=== PATIENT | female | born 1960 | race Caucasian/White ===

== ENCOUNTER 2019-03-11 18:40 | Emergency (ER) | payer BC ==
[2019-03-11 19:30] LABS: ABS Basophils 0.1 10^3/ul (0-0.2); ABS Eosinophils 0.2 10^3/ul (0-0.6); ABS Lymphocytes 1.9 10^3/ul (1.0-4.8); ABS Monocytes 0.5 10^3/ul (0-0.8); ABS Neutrophils 4.2 10^3/ul (1.5-7.7); Eosinophil % 3.1 %; Hematocrit 42 % (35-47); Hemoglobin 14.2 g/dL (12.0-16.0); Lymphocyte % 27.2 %; Mean Corpuscular HGB Conc 34 g/dL (31-36); Mean Corpuscular Hemoglobin 29 pg (27-31); Mean Corpuscular Volume 85 fL (80-97); Mean Platelet Volume 8.4 fL (7.4-10.4); Platelet Count 245 10^3/uL (150-450); Red Blood Count 4.95 10^6 /uL (3.70-4.87); Red Cell Distribution Width 13 % (10-15); White Blood Count 6.8 10^3/uL (3.5-10.8)
[2019-03-11 19:41] LABS: INR 0.95 (0.82-1.09)
[2019-03-11 20:00] LABS: Troponin I 0.01 ng/mL (<0.04)
[2019-03-11 20:03] LABS: Albumin 4.4 g/dL (3.2-5.2); Albumin/Globulin Ratio 1.9 (1-3); BUN/Creatinine Ratio 18.7 (8-20); Calcium 9.3 mg/dL (8.6-10.3); EGFR African American 76.8 (>60); EGFR Non-African American 63.5 (>60); Globulin 2.3 g/dL (2-4); Potassium 3.7 mmol/L (3.5-5.0); Total Bilirubin 0.7 mg/dL (0.2-1.0); Total Protein 6.7 g/dL (6.4-8.9)
--- NOTE | 2019-03-11 23:38 | ED ---
HPI Chest Pain - HPI Summary HPI Summary: Pt is a 59 y/o F presenting to the ED for a chief complaint of chest discomfort for the last 3 days. Pt has chest discomfort that worsens when walking/exertion and improves when laying down or at rest. Patient characterizes the chest pain for the past two days as a discomfort and states that the pain became more of a sharp/stabbing and "pinching" sensation. Pain is noted to radiate upwards from left anterior chest. At work today, 03/11/19, patient had left-sided chest pain. She states that the chest pain worsened after she returned home and took a shower. Pt describes that the chest discomfort is associated with palpitations, coughing, SOB, nausea, diaphoresis, and throat discomfort. Pt had a cardiac stress test performed 7-8 years ago. Pt denies fever or pedal edema. She has not taken any medications for her symptoms. Pt has a FMHx of angina, [place], and her father had quadruple bypass. Pt has a PMHx of mitral valve prolapse diagnosed in 2003, HTN which pt no longer takes medication for, and hypercholesterinemia for which she takes medication. Pt denies a cardiac catheterization in the past or pain at the present time. Pt denies smoking, alcohol or drug use. Pt moved to [place] from [facility] 3 months ago. - History of Current Complaint Chief Complaint: EDChestPainROMI Time Seen by Provider: 03/11/19 22:15 Hx Obtained From: Patient Onset/Duration: Started Days Ago, Atraumatic, Still Present Timing: Intermittent, Lasting Days Initial Severity: Moderate Current Severity: Moderate Pain Intensity: 6 Pain Scale Used: 0-10 Numeric Chest Pain Location: Left Anterior Chest Pain Radiates: Yes Chest Pain Radiates To:: Other - radiated upwards from left anterior chest Character: Pressure/Squeezing, Sharp/Stabbing, Other: - Pinching Aggravating Factor(s): Exertion, Movement - Walking Alleviating Factor(s): Rest Associated Signs and Symptoms: Positive: Chest Pain, Shortness of Breath, Diaphoresis, Nausea, Palpitations, Cough, Other: - Negative pedal edema, positive throat discomfort. Negative: Fever, Edema - Allergy/Home Medications Allergies/Adverse Reactions: Allergies Allergy/AdvReac Type Severity Reaction Status Date / Time tomato Allergy Swelling Verified 03/11/19 18:50 Of Face,Lips,& Throat calamari Allergy Swelling Uncoded 03/11/19 18:50 Of Face,Lips,& Throat Home Medications: Home Medications Ibuprofen TAB* [Motrin TAB* 600 MG] 600 mg PO Q8HR PRN 03/11/19 [History Confirmed 03/11/19] Simvastatin 20 mg PO DAILY 03/11/19 [History Confirmed 03/11/19] Thyroid TAB* [Thyroid TAB 60 MG*] 60 mg PO DAILY 03/11/19 [History Confirmed ] PMH/Surg Hx/FS Hx/Imm Hx Previously Healthy: Yes Endocrine/Hematology History: Denies: Hx Diabetes Cardiovascular History: Reports: Hx Hypercholesterolemia, Hx Hypertension, Other Cardiovascular Problems/Disorders - Mitral valve prolapse - Surgical History Surgical History: None Surgery Procedure, Year, and Place: None Infectious Disease History: No Infectious Disease History: Denies: Traveled Outside the [place] in Last 30 Days - Family History Known Family History: Negative: Diabetes - Social History Alcohol Use: None Hx Substance Use: No Substance Use Type: Reports: None Substance Use Comment - Amount & Last Used: None Hx Tobacco Use: No Smoking Status (MU): Former Smoker Review of Systems - ROS Summary Review of Systems Summary: Ibuprofen TAB* [Motrin TAB* 600 MG] 600 mg PO Q8HR PRN 03/11/19 [History Confirmed 03/11/19] Simvastatin 20 mg PO DAILY 03/11/19 [History Confirmed 03/11/19] Thyroid TAB* [Thyroid TAB 60 MG*] 60 mg PO DAILY 03/11/19 [History Confirmed ] Positive: Skin Diaphoresis. Negative: Fever Positive: Other - Throat discomfort Positive: Palpitations, Chest Pain - Chest discomfort Positive: Shortness Of Breath, Cough Positive: Nausea Negative: Edema - pedal All Other Systems Reviewed And Are Negative: Yes Physical Exam - Summary Physical Exam Summary: General: Well-developed, Obese. Female. Mildly anxious. HEENT: Normocephalic, Atraumatic. Eyes: Conjuctiva normal, PERRL. Ears: TMs within normal limits. Nares: (-) discharge, (-) erythema. Oropharynx: Clear, mucous membranes moist, (-) exudates. Neck: Soft, FROM, (-) lymphadenopathy, (-) thyromegaly, (-) JVD. Cardiovascular: Normal sinus rhythm, (-) murmur. Lungs: Clear to auscultation bilaterally (-) wheezes, (-) rales, (-) rhonchi. Abdomen: Soft, non-tender, non-distended, (-) organomegaly, normal bowel sounds. Back: (-) CVA tenderness Extremities: No edema. Skin: Warm, dry, (-) rash. Neuro: Alert and oriented x3, no focal deficits. Psychiatric: Mood normal, affect normal. Triage Information Reviewed: Yes Vital Signs On Initial Exam: Initial Vitals Temp Pulse Resp BP Pulse Ox 98.4 F 85 16 154/97 100 03/11/19 18:44 03/11/19 18:44 03/11/19 18:44 03/11/19 18:44 03/11/19 18:44 Vital Signs Reviewed: Yes Diagnostics - Vital Signs Vital Signs Temp Pulse Resp BP Pulse Ox 03/11/19 22:08 69 156/85 98 03/11/19 22:00 98.2 F 74 99 03/11/19 21:38 77 14 154/92 98 03/11/19 21:37 73 98 03/11/19 21:00 98.5 F 77 18 169/94 98 03/11/19 18:44 98.4 F 85 16 154/97 100 - Laboratory Lab Results: Lab Results 03/11/19 03/11/19 03/11/19 Range/Units 19:12 19:12 19:12 WBC 6.8 (3.5-10.8) 10^3/uL RBC 4.95 H (3.70-4.87) 10^6 /uL Hgb 14.2 (12.0-16.0) g/dL Hct 42 (35-47) % MCV 85 (80-97) fL MCH 29 (27-31) pg MCHC 34 (31-36) g/dL RDW 13 (10-15) % Plt Count 245 (150-450) 10^3/uL MPV 8.4 (7.4-10.4) fL Neut % (Auto) 61.8 % Lymph % (Auto) 27.2 % Foster % (Auto) 7.1 % Eos % (Auto) 3.1 % Baso % (Auto) 0.8 % Absolute Neuts (auto) 4.2 (1.5-7.7) 10^3/ul Absolute Lymphs (auto) 1.9 (1.0-4.8) 10^3/ul Absolute Monos (auto) 0.5 (0-0.8) 10^3/ul Absolute Eos (auto) 0.2 (0-0.6) 10^3/ul Absolute Basos (auto) 0.1 (0-0.2) 10^3/ul Absolute Nucleated RBC 0.0 10^3/ul Nucleated RBC % 0.0 INR (Anticoag Therapy) 0.95 (0.82-1.09) Sodium 140 (135-145) mmol/L Potassium 3.7 (3.5-5.0) mmol/L Chloride 104 (101-111) mmol/L Carbon Dioxide 29 (22-32) mmol/L Anion Gap 7 (2-11) mmol/L BUN 17 (6-24) mg/dL Creatinine 0.91 (0.51-0.95) mg/dL Est GFR ( Amer) 76.8 (>60) Est GFR (Non-Af Amer) 63.5 (>60) BUN/Creatinine Ratio 18.7 (8-20) Glucose 170 H (70-100) mg/dL Calcium 9.3 (8.6-10.3) mg/dL Total Bilirubin 0.70 (0.2-1.0) mg/dL AST 19 (13-39) U/L ALT 20 (7-52) U/L Alkaline Phosphatase 87 (34-104) U/L Troponin I 0.01 (<0.04) ng/mL Total Protein 6.7 (6.4-8.9) g/dL Albumin 4.4 (3.2-5.2) g/dL Globulin 2.3 (2-4) g/dL Albumin/Globulin Ratio 1.9 (1-3) 03/11/19 Range/Units 21:49 WBC (3.5-10.8) 10^3/uL RBC (3.70-4.87) 10^6 /uL Hgb (12.0-16.0) g/dL Hct (35-47) % MCV (80-97) fL MCH (27-31) pg MCHC (31-36) g/dL RDW (10-15) % Plt Count (150-450) 10^3/uL MPV (7.4-10.4) fL Neut % (Auto) % Lymph % (Auto) % Foster % (Auto) % Eos % (Auto) % Baso % (Auto) % Absolute Neuts (auto) (1.5-7.7) 10^3/ul Absolute Lymphs (auto) (1.0-4.8) 10^3/ul Absolute Monos (auto) (0-0.8) 10^3/ul Absolute Eos (auto) (0-0.6) 10^3/ul Absolute Basos (auto) (0-0.2) 10^3/ul Absolute Nucleated RBC 10^3/ul Nucleated RBC % INR (Anticoag Therapy) (0.82-1.09) Sodium (135-145) mmol/L Potassium (3.5-5.0) mmol/L Chloride (101-111) mmol/L Carbon Dioxide (22-32) mmol/L Anion Gap (2-11) mmol/L BUN (6-24) mg/dL Creatinine (0.51-0.95) mg/dL Est GFR ( Amer) (>60) Est GFR (Non-Af Amer) (>60) BUN/Creatinine Ratio (8-20) Glucose (70-100) mg/dL Calcium (8.6-10.3) mg/dL Total Bilirubin (0.2-1.0) mg/dL AST (13-39) U/L ALT (7-52) U/L Alkaline Phosphatase (34-104) U/L Troponin I 0.00 (<0.04) ng/mL Total Protein (6.4-8.9) g/dL Albumin (3.2-5.2) g/dL Globulin (2-4) g/dL Albumin/Globulin Ratio (1-3) Result Diagrams: 03/11/19 19:12 03/11/19 19:12 Lab Statement: Any lab studies that have been ordered have been reviewed, and results considered in the medical decision making process. - Radiology Chest X-ray Radiology Interpretation Completed By: ED Physician Summary of Radiographic Findings: Chest x-ray impression: normal. Reviewed by ED physician, pending official radiology report. - EKG 1841 Cardiac Rate: NL - rate of 89 BPM EKG Rhythm: Sinus Rhythm Summary of EKG Findings: EKG showed NSR with rate of 89 BPM, no STEMI. ED physician has reviewed and interpreted this EKG. Chest Pain Course/Dx - Course Course Of Treatment: Pt is a 59 y/o F presenting to the ED for a chief complaint of chest discomfort for the last 3 days. Pt has chest discomfort that worsens when walking/exertion and improves when laying down or at rest. Patient characterizes the chest pain for the past two days as a discomfort and states that the pain became more of a sharp/stabbing and "pinching" sensation. Pain is noted to radiate upwards from left anterior chest. At work today, 03/11/19, patient had left-sided chest pain. She states that the chest pain worsened after she returned home and took a shower. Pt describes that the chest discomfort is associated with palpitations, coughing, SOB, nausea, diaphoresis, and throat discomfort. Pt had a cardiac stress test performed 7-8 years ago. Pt denies fever or pedal edema. She has not taken any medications for her symptoms. Pt has a FMHx of angina, [place], and her father had quadruple bypass. Pt has a PMHx of mitral valve prolapse diagnosed in 2003, HTN which pt no longer takes medication for, and hypercholesterinemia for which she takes medication. Pt denies a cardiac catheterization in the past or pain at the present time. Pt denies smoking, alcohol or drug use. EKG showed NSR with rate of 89 BPM, no STEMI. Bloodwork abnormal findings: RBC 4.95, glucose 170. First and second trop were negative. Chest x-ray impression: normal. Patient will be discharged home with a diagnosis of chest pain. She will follow up with PCP to discuss possible cardiac stress test. - Diagnoses Provider Diagnoses: Chest pain Discharge ED - Sign-Out/Discharge Documenting (check all that apply): Patient Departure - Discharge Patient Received Moderate/Deep Sedation with Procedure: No - Discharge Plan Condition: Stable Disposition: HOME Patient Education Materials: Chest Pain (ED) Referrals: Jean GUERRERO,CESAR Newman [Primary Care Provider] - Additional Instructions: Please follow up with primary care provider within 3 days. Talk with your primary care provider to determine if stress test is needed. Return to the ED for any new or worsening symptoms. - Billing Disposition and Condition Condition: STABLE Disposition: Home - Attestation Statements Document Initiated by [place]: Yes Documenting Scribe: Jarred Rosenbaum Provider For Whom Scribe is Documenting (Include Credential): Nery Sweeney MD. Scribe Attestation: I, Jarred Rosenbaum, scribed for Nery Sweeney MD. on 03/12/19 at 0223. Scribe Documentation Reviewed: Yes Provider Attestation: The documentation as recorded by the scribeJarred accurately reflects the service I personally performed and the decisions made by me, Nery Sweeney MD. Status of Scribe Document: Viewed
[2019-03-11 23:54] VITALS: BP 147/102
== END 2019-03-11 23:55 | disposition home or self-care (01) ==
LOC: ED 18:40
DX: R07.9 Chest pain, unspecified (principal); R06.02 Shortness of breath; R11.0 Nausea; R00.2 Palpitations; R05 Cough; E78.00 Pure hypercholesterolemia, unspecified; I10 Essential (primary) hypertension; Z79.899 Other long term (current) drug therapy; Z87.891 Personal history of nicotine dependence
CPT/HCPCS: 36415; 71046; 80053; 84484; 85025; 85610; 93005; 99283

== ENCOUNTER 2019-04-29 10:59 | Emergency (ER) | payer BC ==
--- OUTSIDE RECORDS SUMMARY | 2019-04-29 11:06 | XMS REPORT | Continuity of Care Document ---
:1960 External Reference #:[id number] Author Name Dinesh Thakur DO [facility] (transmitted by agent of provider Gabby Kyle) Address 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 No Information Available Social History Type Date Description Comments Sex Unknown Tobacco Use Start: Unknown End: Former Cigarette Smoker Unknown ETOH Use Occasionally consumes wine Tobacco Use Start: Unknown End: Patient is a former Unknown smoker Recreational Drug Use Denies Drug Use Tobacco Use Start: Unknown End: Patient is a former stopped in her 30's Unknown smoker Smoking Status Reviewed: 03/17/19 Patient is a former stopped in her 30's smoker Exercise Type/Frequency Exercises regularly Allergies, Adverse Reactions, Alerts Description No Known Drug Allergies Medications Active Medications SIG Qnty Indications Ordering Provider Date Zocor 1 every at 90tabs Velasquez Day MD 03/17/2019 20mg Tablets bedtime [place] Thyroid 1 by mouth every 30tabs Velasquez Day MD 03/17/2019 60mg day Tablets Melatonin Gummies 2 tab every 60units G47.00 Velasquez Day MD 03/17/2019 2.5mg night at bedtime Chewtabs Cetirizine HCL take 1 pill 30units J30.9 Velasquez Day MD 03/17/2019 5mg daily Chewtabs Immunizations Description No Information Available Vital Signs Date Vital Result Comment 03/17/2019 11:44am Height 62 inches 5'2" Weight 181.00 lb no shoes Heart Rate 80 /min BP Systolic 132 mmHg rue reg cuff BP Diastolic 80 mmHg rue reg cuff BP Systolic Sitting 128 mmHg lue reg cuff BP Diastolic Sitting 80 mmHg lue reg cuff BP Systolic Standing 140 mmHg lue reg cuff BP Diastolic Standing 80 mmHg lue reg cuff Respiratory Rate 14 /min BMI (Body Mass Index) 33.1 kg/m2 Ejection Fraction none 03/17/2019 8:59am Height 62 inches 5'2" Weight 188.00 lb Heart Rate 71 /min BP Systolic 110 mmHg BP Diastolic 70 mmHg Body Temperature 97.2 F O2 % BldC Oximetry 97 % BMI (Body Mass Index) 34.4 kg/m2 Results Description No Information Available Procedures Date Code Description Status 03/17/2019 92772 EKG Tracing & Interpretation Completed Medical Devices Description No Information Available Encounters Description No Information Available Assessments Date Code Description Provider 03/17/2019 R73.01 Impaired fasting glucose Dinesh Thakur, DO [facility] 03/17/2019 E06.3 Autoimmune thyroiditis Velasquez Day MD 03/17/2019 E78.2 Mixed hyperlipidemia Dinesh Thakur DO [facility] 03/17/2019 R07.9 Chest pain, unspecified Velasquez Day MD 03/17/2019 E78.5 Hyperlipidemia, unspecified Dinesh Thakur DO [facility] 03/17/2019 R00.2 Palpitations Velasquez Day MD 03/17/2019 I34.0 Nonrheumatic mitral (valve) insufficiency Dinesh Thakur DO [facility] 03/17/2019 E78.5 Hyperlipidemia, unspecified Velasquez Day MD 03/17/2019 R07.9 Chest pain, unspecified Dinesh Thakur DO [facility] 03/17/2019 R73.03 Prediabetes Velasquez Day MD 03/17/2019 R06.02 Shortness of breath Dinesh Thakur DO [facility] 03/17/2019 G47.00 Insomnia, unspecified Velasquez Day MD 03/17/2019 R00.2 Palpitations Dinesh Thakur DO [facility] 03/17/2019 J30.9 Allergic rhinitis, unspecified Velasquez Day MD 03/17/2019 Z12.11 Encounter for screening for malignant Velasquez Day MD neoplasm of colon 03/17/2019 R06.02 Shortness of breath Velasquez Day MD Plan of Treatment Future Appointment(s):03/20/2019 9:00 am - Nurse Visit IC at [facility]03/19/2019 9:30 am - Nurse Visit IC at [facility] 9:15 am - Dinesh Thakur DO FACC at [facility]04/08/2019 8:45 am - Ica ECHO Schedule at [facility]04/21/2019 12:00 pm - Dustin Jiménez MD at [facility]03/17/2019 - Dinesh Thakur DO FACCR73.01 Impaired fasting glucoseFollow up:PRNE78.2 Mixed plrmprofizyfrvK80.5 Hyperlipidemia, bxabitnjetyA81.0 Nonrheumatic mitral (valve ) eninlksfelytuW51.9 Chest pain, unspecifiedNew Orders:Stress Test, Exercise Echocardiogram, Scheduled: 03/17/19R06.02 Shortness of wmzzaxM32.2 PalpitationsNew Orders:Holter Monitor, Ordered: 03/17/19 Functional Status Description No Information Available Mental Status Description No Information Available Referrals Refer to Dr Reason for Referral Status Appt Date Dinesh Thakur DO, FACC palpitations, episode of chest Sent 03/17/2019 discomfort, family history. [facility] [place] [id number] [phone]
--- OUTSIDE RECORDS SUMMARY | 2019-04-29 11:06 | XMS REPORT | Continuity of Care Document ---
:1960 External Reference #:[id number] Author Name Velasquez Day MD (transmitted by agent of provider Marie Walker) Address [address] [place] [address] Problems Description No Information Available Social History Type Date Description Comments Sex Unknown Tobacco Use Start: Unknown End: Patient is a former smoker Unknown Tobacco Use Start: Unknown End: Patient is a former smoker stopped in her 30 's Unknown Smoking Status Reviewed: 03/17/19 Patient is a former smoker stopped in her 30's Allergies, Adverse Reactions, Alerts Description No Known Drug Allergies Medications Active Medications SIG Qnty Indications Ordering Provider Date Zocor 1 every at 90tabs Velasquez Day MD 03/17/2019 20mg Tablets bedtime [place] Thyroid 1 by mouth every 30tabs Velasquez Day MD 03/17/2019 60mg day Tablets Melatonin Gummies 2 tab every 60units G47.00 Velasquez Day MD 03/17/2019 2.5mg night at bedtime Chewtabs Cetirizine HCL take 1 pill 30units J30.9 Velasquez Day MD 03/17/2019 5mg daily Chewtabs Immunizations Description No Information Available Vital Signs Date Vital Result Comment 03/17/2019 8:59am Height 62 inches 5'2" Weight 188.00 lb Heart Rate 71 /min BP Systolic 110 mmHg BP Diastolic 70 mmHg Body Temperature 97.2 F O2 % BldC Oximetry 97 % BMI (Body Mass Index) 34.4 kg/m2 Results Description No Information Available Procedures Description No Information Available Medical Devices Description No Information Available Encounters Description No Information Available Assessments Date Code Description Provider 03/17/2019 E06.3 Autoimmune thyroiditis Velasquez Day MD 03/17/2019 R07.9 Chest pain, unspecified Velasquez Day MD 03/17/2019 R00.2 Palpitations Velasquez Day MD 03/17/2019 E78.5 Hyperlipidemia, unspecified Velasquez Day MD 03/17/2019 R73.03 Prediabetes Velasquez Day MD 03/17/2019 G47.00 Insomnia, unspecified Velasquez Day MD 03/17/2019 J30.9 Allergic rhinitis, unspecified Velasquez Day MD 03/17/2019 Z12.11 Encounter for screening for malignant neoplasm of Velasquez Day MD colon 03/17/2019 R06.02 Shortness of breath Velasquez Day MD Plan of Treatment Future Appointment(s):04/21/2019 12:00 pm - Dustin Jiménez MD at [facility]03/17/2019 - Velasquez Day MDE06.3 Autoimmune gyppouomftxP75.9 Chest pain, unspecifiedReferral:Dinesh Thakur DO, FACC, Cardiovsclr KcgqavuD92.2 ZsopvtpigyarN23.5 Hyperlipidemia, jonruzhsphxS27.03 LknbhnmlucwI63.00 Insomnia, unspecifiedNew Medication:Melatonin Gummies 2.5 mg - 2 tab every night at lzpklmuN48.9 Allergic rhinitis, unspecifiedNew Medication :Cetirizine HCL 5 mg - take 1 pill tylsyO50.11 Encounter for screening for malignant neoplasm of colonComments:We will request records from your last colonoscopy as you will likely need another screening colonoscopy within the next 0-2 years.R06.02 Shortness of breath Functional Status Description No Information Available Mental Status Description No Information Available Referrals Refer to Dr Reason for Referral Status Appt Date Dinesh Thakur DO, FACC palpitations, episode of chest Created discomfort, family history. [address] [place] [address] [phone]
--- OUTSIDE RECORDS SUMMARY | 2019-04-29 11:06 | XMS REPORT | Continuity of Care Document ---
:1960 External Reference #:[id number] Author Name Dustin Jiménez MD (transmitted by agent of provider Fifi Flynn) Address [address] [place] [address] Care Team Providers Name Role Phone Velasquez Day MD - Hospitalist Care Team Information Risk Management Analyst [phone] Problems Description No Information Available Social History Type Date Description Comments Sex Unknown Tobacco Use Start: Unknown End: Former Cigarette Smoker Unknown ETOH Use Occasionally consumes 1-2 glasses of wine wine of week Tobacco Use Start: Unknown End: Patient is a former Unknown smoker Recreational Drug Use Denies Drug Use Tobacco Use Start: Unknown End: Patient is a former stopped in her 30's Unknown smoker Smoking Status Reviewed: 04/21/19 Patient is a former stopped in her 30's smoker Exercise Type/Frequency Exercises regularly walk daily Allergies, Adverse Reactions, Alerts Description No Known Drug Allergies Medications Active Medications SIG Qnty Indications Ordering Date Provider Levothyroxine Sodium 1 by mouth every 30tabs E06.3 Dustin Jiménez MD 2018 day on an empty 100mcg Tablets stomach Metformin HCL 1 by mouth twice 120tabs Velasquez Day MD 03/20/2019 500mg a day for 7 days Tablets then two tabs twice a day Zocor 1 every at 90tabs Velasquez Day MD 03/17/2019 20mg Tablets bedtime History Medications Levothyroxine Sodium 1 by mouth every E06.3 Dustin Jiménez 04/21/2019 - day 04/21/2019 100mcg Solution Rec Metformin HCL ER (Mod) 1 by mouth twice 60tabs Velasquez Day MD 03/19/2019 - a day for 1 week 03/20/2019 500mg Tablets ER 24HR then 2 by mouth twice a day [facility] Thyroid 1 by mouth every 30tabs E06.3 Velasquez Day MD 03/17/2019 - 60mg day 04/21/2019 Tablets Melatonin Gummies 2 tab every 60units G47.00 Velasquez Day MD 03/17/2019 - 2.5mg night at bedtime 04/20/2019 [facility] Cetirizine HCL take 1 pill 30units J30.9 Velasquez Day MD 03/17/2019 - 5mg daily 04/20/2019 [facility] Immunizations Description No Information Available Vital Signs Date Vital Result Comment 04/21/2019 12:36pm Height 62 inches 5'2" Weight 194.00 lb w/ shoes Heart Rate 90 /min BP Systolic Sitting 137 mmHg BP Diastolic Sitting 75 mmHg BMI (Body Mass Index) 35.5 kg/m2 03/17/2019 11:44am Height 62 inches 5'2" Weight [...] Mass Index) 33.1 kg/m2 Ejection Fraction none Results Test Acquired Date Facility Test Result H/L Range Note Laboratory test 03/19/2019 [facility] TSH 1.24 Normal 0.34- 5.[address] (Thyroid mcIU/[place] [address] Stim [phone] Horm) Free T4 (Free Thyroxine) 1.01 ng/dL Normal 0.61-1.12 T3 Total 119 ng/dL Normal 87-178 Hemoglobin A1c (Glyco HGB) 6.9 % High 4.0-5.6 1 Lipid Profile 03/19/2019 [facility] Triglycerides 182 mg/dL 2 (Trig/Chol/HDL) [address] [place] [address] [phone] Cholesterol 179 mg/dL 3 HDL Cholesterol 41.5 mg/dL 4 LDL Cholesterol 101 mg/dL 5 1 Therapeutic target for the treatment of diabetes mellitus patients is <7% HBA1C, and in selective patients <6.0%. Please refer to [place] [employer] diabetic care guidelines for further information. 2 Desirable: <150 Borderline High: 150-199 High: 200-499 Very High: >500 3 Desirable: <200 Borderline High: 200-239 High: >239 4 Low: <40 Desirable: 40-60 High: >60 5 Desirable: <100 Near Optimal: 100-129 Borderline High: 130-159 High: 160-189 Very High: >189 Procedures Date Code Description Status 04/08/2019 04451 ECHO Stress Test Incl Perf Contiuous ekg Monitoring W/Phys Completed Superv 03/20/2019 58756 Holter Monitor Review (24 hr)dr review & interp only Completed 03/17/2019 27840 ECG Monitor/Recording W/Visual Superimposition Scanning Completed 03/17/2019 87226 EKG Tracing & Interpretation Completed Medical Devices Description No Information Available Encounters Type Date Location Provider Dx Diagnosis Office Visit 03/17/2019 [facility] Dinesh Thakur, R73.01 Impaired fasting 12:00p Of [facility] DO FACC glucose E78.2 Mixed hyperlipidemia E78.5 Hyperlipidemia, unspecified I34.0 Nonrheumatic mitral (valve) insufficiency R07.9 Chest pain, unspecified R06.02 Shortness of breath R00.2 Palpitations Office Visit 03/17/2019 9:00a [facility] Internal Velasquez Day MD E06.3 [facility] Suite thyroiditis R R07.9 Chest pain, unspecified R00.2 Palpitations E78.5 Hyperlipidemia, unspecified R73.03 Prediabetes G47.00 Insomnia, unspecified J30.9 Allergic rhinitis, unspecified Z12.11 Encounter for screening for malignant neoplasm of colon R06.02 Shortness of breath Assessments Date Code Description Provider 04/21/2019 E06.3 Autoimmune thyroiditis Dustin Jiménez MD 04/08/2019 R07.9 Chest pain, unspecified Dinesh Thakur DO [facility] 03/20/2019 R00.2 Palpitations Dinesh Thakur DO [facility] 03/17/2019 R73.01 Impaired fasting glucose Dinesh Thakur DO [facility] 03/17/2019 E06.3 Autoimmune thyroiditis Velasquez Day MD 03/17/2019 E78.2 Mixed hyperlipidemia Dinesh Thakur DO [facility] 03/17/2019 R07.9 Chest pain, unspecified Velasquez Day MD 03/17/2019 E78.5 Hyperlipidemia, unspecified Dinesh Tahkur DO [facility] 03/17/2019 R00.2 Palpitations Velasquez Day MD 03/17/2019 I34.0 Nonrheumatic mitral (valve) insufficiency Dinesh Thakur DO [facility] 03/17/2019 E78.5 Hyperlipidemia, unspecified Velasquez Day MD 03/17/2019 R07.9 Chest pain, unspecified Dinesh Thakur DO [facility] 03/17/2019 R73.03 Prediabetes Velasquez Day MD 03/17/2019 R06.02 Shortness of breath Dinesh Thakur DO [facility] 03/17/2019 G47.00 Insomnia, unspecified Velasquez Day MD 03/17/2019 R00.2 Palpitations Dinesh Thakur DO [facility] 03/17/2019 J30.9 Allergic rhinitis, unspecified Velasquez Day MD 03/17/2019 Z12.11 Encounter for screening for malignant Velasquez Day MD neoplasm of colon 03/17/2019 R06.02 Shortness of breath Velasquez Day MD Plan of Treatment Future Appointment(s):09/16/2019 4:20 pm - Dustin Jiménez MD at [facility]04/21/2019 - Dustin Jiménez MDE06.3 Autoimmune thyroiditisNew Medication:Levothyroxine Sodium 100 mcg - 1 by mouth every day on an empty stomachLevothyroxine Sodium 100 mcg - 1 by mouth every dayInstructions:1. Stop [facility]. 2. Start levothyroxine 100mcg daily. 3. Return in 1 month for repeat thyroid function tests. 4. Your TSH goal is 0.5-4.0. 5. Return in September 2019. Functional Status Description No Information Available Mental Status Description No Information Available Referrals Refer to Dr Reason for Referral Status Appt Date Dinesh Thakur DO, [facility] palpitations, episode of chest Sent 03/17/2019 discomfort, family history. [facility] [place] [address] [phone]
[2019-04-29 11:09] VITALS: BP 138/85
--- NOTE | 2019-04-29 12:32 | UC ---
Throat Pain/Nasal Viktor HPI - HPI Summary HPI Summary: Patient is a 59yo female presenting with sore throat and L ear pain that began last night. Also notes mild dry cough. Notes swollen neck gland as well. Denies URI symptoms. Denies fever but notes chills. Notes intermittent nausea. Denies vomiting. Denies SOB and wheezing. Denies taking anything for symptom relief. Patient does not have tonsils. - History of Current Complaint Chief Complaint: UCGeneralIllness Stated Complaint: SORE THROAT Hx Obtained From: Patient Onset/Duration: Gradual Onset, Lasting Hours Severity: Moderate Pain Intensity: 5 Pain Scale Used: 0-10 Numeric - Allergies/Home Medications Allergies/Adverse Reactions: Allergies Allergy/AdvReac Type Severity Reaction Status Date / Time tomato Allergy Swelling Verified 04/29/19 11:09 Of Face,Lips,& Throat calamari Allergy Swelling Uncoded 04/29/19 11:09 Of Face,Lips,& Throat Home Medications: Home Medications Levothyroxine TAB* [Synthroid 100 MCG TAB*] 1 tab PO DAILY 04/29/19 [History Confirmed 04/29/19] Metformin HCl 1 tab PO BID 04/29/19 [History Confirmed 04/29/19] PMH/Surg Hx/FS Hx/Imm Hx Endocrine History: Diabetes, Hypothyroidism - Surgical History Surgical History: Yes Surgery Procedure, Year, and Place: bilat planter faciaitis, left should, bilat knees lower back ,tubal, ta - Family History Known Family History: Negative: Diabetes - Social History Occupation: Employed Full-time Alcohol Use: None Substance Use Type: None Substance Use Comment - Amount & Last Used: None Smoking Status (MU): Former Smoker Review of Systems All Other Systems Reviewed And Are Negative: Yes Constitutional: Positive: Chills. Negative: Fever ENT: Positive: Sore Throat, Ear Ache - R. Negative: Nasal Discharge, Sinus Congestion, Sinus Pain/Tenderness Respiratory: Positive: Cough - dry. Negative: Shortness Of Breath Cardiovascular: Positive: Negative Gastrointestinal: Positive: Nausea. Negative: Abdominal Pain, Vomiting, Diarrhea Musculoskeletal: Positive: Negative Neurological: Positive: Negative Physical Exam Triage Information Reviewed: Yes Appearance: Well-Appearing, No Pain Distress, Well-Nourished Vital Signs: Initial Vital Signs Temp 98.5 F 04/29/19 11:05 Pulse 82 04/29/19 11:05 Resp 18 04/29/19 11:05 BP 138/85 04/29/19 11:05 Pulse Ox 100 04/29/19 11:05 Lab Results 04/29/19 Range/Units 12:09 Group A Strep Rapid Negative (Negative) Vital Signs Reviewed: Yes Eyes: Positive: Conjunctiva Clear ENT: Positive: Hearing grossly normal, Pharyngeal erythema, TMs normal, Uvula midline. Negative: Nasal congestion, Nasal drainage, Tonsillar swelling, Tonsillar exudate, Trismus, Muffled voice, Hoarse voice, Sinus tenderness Neck exam: Normal Neck: Positive: Supple, Nontender, Enlarged Nodes @ - L tonsillar Respiratory Exam: Normal Respiratory: Positive: Lungs clear, Normal breath sounds, No respiratory distress Cardiovascular Exam: Normal Cardiovascular: Positive: RRR Neurological: Positive: Alert Psychological: Positive: Age Appropriate Behavior Skin Exam: Normal Throat Pain/Nasal Course/Dx - Course Course Of Treatment: Discussed negative strep test and no sign of ear infection with patient and likely viral etiology of illness. Instructed to continue with symptomatic treatment and follow up with PCP or to her connections clinic if symptoms do not resolve within 7 days. Patient voiced understanding and agreed with treatment plan. - Differential Dx/Diagnosis Provider Diagnosis: Pharyngitis Discharge ED - Sign-Out/Discharge Documenting (check all that apply): Patient Departure All imaging exams completed and their final reports reviewed: No Studies - Discharge Plan Condition: Stable Disposition: HOME Patient Education Materials: Pharyngitis (ED) Forms: *Work Release Referrals: [facility] [Outside] - If Needed Additional Instructions: As discussed, you tested negative for strep throat today. You may take ibuprofen and/or tylenol as directed for fever and pain relief. You may use over the counter throat sprays or lozenges for symptomatic relief. Get plenty of rest and fluids. Follow up with your PCP or the [facility] listed below if symptoms do not resolve within 7 days. - Billing Disposition and Condition Condition: STABLE Disposition: Home
== END 2019-04-29 13:08 | disposition home or self-care (01) ==
LOC: UCEAST 10:59
DX: J02.9 Acute pharyngitis, unspecified (principal); E11.9 Type 2 diabetes mellitus without complications; E03.9 Hypothyroidism, unspecified; Z91.018 Allergy to other foods; Z79.84 Long term (current) use of oral hypoglycemic drugs; Z79.899 Other long term (current) drug therapy; Z87.891 Personal history of nicotine dependence
CPT/HCPCS: 87651; 99211; G0463

== ENCOUNTER 2019-05-01 10:26 | Emergency (ER) | payer BC, OTHER ==
[2019-05-01] MEDS ORDERED: Ibuprofen TAB* 600 MG PO ONE (11:38)
--- NOTE | 2019-05-01 12:22 | ED ---
Lower Extremity - HPI Summary HPI Summary: This pt is a 59 y/o female [facility] c/o left leg pain s/p slipping on ice 2 days ago. Pt reports she slipped on black ice but didn't allow herself to fall. Denies any head strike or LOC. She notes she strained her left leg and has been having pain since then. Pt describes her pain radiates from her left hip down her left upper leg. Her pain is aggravated with movement. Denies left lower leg pain and back pain. Pt has taken 50 mg of Tramadol with no relief. PMHx: DTM, hyperthyroidism, bilateral plantar fasciitis, bilateral knee surgery , meniscus tear on the right, tubal ligation. - History of Current Complaint Chief Complaint: EDExtremityLower Stated Complaint: LEFT LEG PAIN FROM FALL PER PT Time Seen by Provider: 05/01/19 11:37 Hx Obtained From: Patient Mechanism Of Injury: Fall From A Standing Position Onset of Pain: Days Onset/Duration: Days Severity Currently: Severe Pain Intensity: 10 Pain Scale Used: 0-10 Numeric Timing: Lasting Days Location: Is Discrete @ - left leg Associated Signs And Symptoms: Negative: Fever, Abdominal Pain, Knee Pain Aggravating Factor(s): Movement Alleviating Factor(s): Rest - Allergies/Home Medications Allergies/Adverse Reactions: Allergies Allergy/AdvReac Type Severity Reaction Status Date / Time tomato Allergy Swelling Verified 04/29/19 11:09 Of Face,Lips,& Throat calamari Allergy Swelling Uncoded 04/29/19 11:09 Of Face,Lips,& Throat Home Medications: Home Medications traMADol TAB* [Ultram*] 50 mg PO Q6HR PRN 05/01/19 [History Confirmed 05/01/19] PMH/Surg Hx/FS Hx/Imm Hx Endocrine/Hematology History: Reports: Hx Diabetes, Hx Thyroid Disease - Hyperthyroidism Cardiovascular History: Reports: Hx Hypercholesterolemia, Hx Hypertension - not on meds, Other Cardiovascular Problems/Disorders - Mitral valve prolapse - Surgical History Surgical History: Yes Surgery Procedure, Year, and Place: bilat planter faciaitis, left should, bilat knees lower back ,tubal, ta Infectious Disease History: No Infectious Disease History: Denies: Traveled Outside the [place] in Last 30 Days - Family History Known Family History: Positive: Cardiac Disease - mitral valve prolapse, Diabetes - Social History Alcohol Use: None Hx Substance Use: No Substance Use Type: Reports: None Substance Use Comment - Amount & Last Used: None Hx Tobacco Use: No Smoking Status (MU): Former Smoker Review of Systems Negative: Fever ENT: Negative Cardiovascular: Negative Musculoskeletal: Other - POSITIVE: left leg pain Negative: Other - NEGATIVE: back pain Neurological: Other - NEGATIVE: LOC All Other Systems Reviewed And Are Negative: Yes Physical Exam - Summary Physical Exam Summary: Constitutional: Well-developed, Well-nourished, Alert. (-) Distressed Skin: Warm, Dry HENT: Normocephalic; Atraumatic Eyes: Conjunctiva normal Neck: Musculoskeletal ROM normal neck. (-) JVD, (-) Stridor, (-) Nuchal rigidity Cardio: Rhythm regular, rate normal, Heart sounds normal; Intact distal pulses; Radial pulses are 2+ and symmetric. (-) Murmur Pulmonary/Chest wall: Effort normal. (-) Respiratory distress, (-) Wheezes, (-) Rales Abd: Soft, (-) tenderness, (-) Distension, (-) Guarding, (-) Rebound Musculoskeletal: (-) Edema. Tenderness of the lateral left hip and thigh. No thoracic or lumbar tenderness. negative SLR. No knee/ankle/foot tenderness. 2+ DP pulse. Neuro: Alert, Oriented x3 Psych: Mood and affect Normal Triage Information Reviewed: Yes Vital Signs On Initial Exam: Initial Vitals Temp Pulse Resp BP Pulse Ox 99.1 F 80 19 140/91 97 05/01/19 10:29 05/01/19 10:29 05/01/19 10:29 05/01/19 10:29 05/01/19 10:29 Vital Signs Reviewed: Yes Procedures - Sedation Patient Received Moderate/Deep Sedation with Procedure: No Diagnostics - Vital Signs Vital Signs Temp Pulse Resp BP Pulse Ox 05/01/19 10:29 99.1 F 80 19 140/91 97 - Laboratory Lab Statement: Any lab studies that have been ordered have been reviewed, and results considered in the medical decision making process. - Radiology Left femur XR Radiology Interpretation Completed By: Radiologist Summary of Radiographic Findings: IMPRESSION: No fracture of the left femur is noted. Dr. Frazier has reviewed this report. Left hip and pelvis XR Radiology Interpretation Completed By: Radiologist Summary of Radiographic Findings: IMPRESSION: Degenerative changes of left hip is noted. Dr. Frazier has reviewed this report. - CT Pelvis CT CT Interpretation Completed By: Radiologist Summary of CT Findings: IMPRESSION: No CT evidence for fracture. Negative for superficial or deep soft tissue plane hematoma. Dr. Frazier has reviewed this report. Re-Evaluation - Re-Evaluation First Eval Re-Evaluation Time: 14:30 Comment: Pt is still c/o some pain to lateral upper thigh. Neg XR and CT. Suspect MSK cause for pain. She will be given crutches and orthopedic follow up. Lower Extremity Course/Dx - Course Course Of Treatment: 59 y/o F p/w L hip/thigh pain after fall. TTP lateral hip/ leg, XR neg, plan for CT for occult fr. No TL tenderness. No knee tenderness. No obvious deformities. - Diagnoses Provider Diagnoses: Left leg pain Discharge ED - Sign-Out/Discharge Documenting (check all that apply): Patient Departure - Discharge home - Discharge Plan Condition: Stable Disposition: HOME Patient Education Materials: Leg Pain (ED) [facility]errals: [facility] [Outside] Gris Harrison MD [Medical Doctor] - Additional Instructions: You were seen in the emergency department for left thigh pain. Your x-rays and CT scan did not show any broken bones or causing pain. Please use crutches until you're seen by orthopedics if you have continued pain. Please follow up with your primary care doctor in next 2-3 days and return to emergency department for worsening pain, numbness or tingling in your leg, or concerning symptoms. It was a pleasure taking care of you today. - Billing Disposition and Condition Condition: STABLE Disposition: Home - Attestation Statements Document Initiated by Destin: Yes Documenting Scribe: Sophia Newton Provider For Whom Destin is Documenting (Include Credential): Eric Frazier MD Scribe Attestation: Sophia Ferreira, scribed for Eric Frazier MD on 05/01/19 at 1851. Scribe Documentation Reviewed: Yes Provider Attestation: The documentation as recorded by the Sophia martinez accurately reflects the service I personally performed and the decisions made by me, Eric Frazier MD Status of Scribe Document: Viewed
[2019-05-01] MEDS ORDERED: oxyCODONE/Acetamin 5/325 MG* TAB PO ONE (13:42)
[2019-05-01 15:07] VITALS: BP 127/68
[2019-05-01] MEDS ORDERED: Lidocaine Patch REMOVE* 1 NOTE MISC SCH (21:00)
[2019-05-02] MEDS ORDERED: Lidocaine PATCH 5%* 1 PATCH TRANSDERM SCH (09:00)
== END 2019-05-01 14:40 | disposition home or self-care (01) ==
LOC: ED 10:26
DX: M79.605 Pain in left leg (principal); E11.9 Type 2 diabetes mellitus without complications; M16.12 Unilateral primary osteoarthritis, left hip; E05.90 Thyrotoxicosis, unspecified without thyrotoxic crisis or storm; E78.00 Pure hypercholesterolemia, unspecified; I10 Essential (primary) hypertension; I34.1 Nonrheumatic mitral (valve) prolapse; Z87.891 Personal history of nicotine dependence
CPT/HCPCS: 72192; 99283; A9270-GY

== ENCOUNTER 2019-08-19 10:52 | Day surgery (SDC) | payer BC, OTHER ==
[~2019-08-19 10:52] MED LIST: Acetaminophen TAB* 325 MG PO ONE; Buffered Lidocaine 1% SYRIN* 1 ML/SYRINGE INTRADERM ONE; HYDROmorphone INJ1* 1 MG/ML SYRINGE IV PRN; Lactated Ringers 1000 ML Bag* 1,000 ML IV SCH; Naloxone* 0.4 MG/ML 1 ML VIAL IV PRN; PROCHLORPERAZINE INJ 5 MG/ML 2 ML VIAL IV PRN; diPHENhydraMINE IV* 50 MG/ML 1 ml VIAL (BENADRYL) IV PRN; oxyCODONE TAB* 5 MG TAB PO PRN
[2019-08-19] MEDS ORDERED: Buffered Lidocaine 1% SYRIN* 1 ML/SYRINGE INTRADERM ONE (11:37)
[2019-08-19] MEDS ORDERED: Acetaminophen TAB* 325 MG ONE (11:37)
[2019-08-19] MEDS ORDERED: EPINEPHRINE 1 MG/ML 1 ML VIAL ONE (12:50)
[2019-08-19] MEDS ORDERED: Oxymetazoline 0.05% NASAL SPR* 15 ML BTL ONE (12:50)
[2019-08-19] MEDS ORDERED: fentaNYL* 50 MCG/ML 2 ML VIAL (100 MCG VIAL) ONE (13:02)
[2019-08-19] MEDS ORDERED: Midazolam* 1 MG/ML 2 ML VIAL (2 MG) ONE (13:02)
[2019-08-19] MEDS ORDERED: Propofol* 10 MG/ML 20 ML BTL ONE (13:08)
[2019-08-19] MEDS ORDERED: Lidocaine 1% w EPI 1:100,000* MDV 20 ML VIAL ONE (13:14)
[2019-08-19] MEDS ORDERED: Triamcinolone Acetonide* 40 MG/ML 1 ML VIAL ONE (13:14)
[2019-08-19] MEDS ORDERED: Remifentanil* 2 MG VIAL ONE (14:27)
[2019-08-19] MEDS ORDERED: Rocuronium* 10 MG/ML VIAL ONE (14:36)
[2019-08-19] MEDS ORDERED: Dexamethasone IV* 4 MG/ML 1 ML (4 MG) ONE (15:27)
[2019-08-19] MEDS ORDERED: Sugammadex * 200 MG/2 ML VIAL IV PUSH ONE (15:58)
[2019-08-19 16:31] VITALS: BP 148/84
--- NOTE | 2019-08-20 03:20 | OP ---
OPERATIVE REPORT: DATE OF OPERATION: 08/19/19 - SDS DATE OF : 62 SURGEON: Hugo Mancera MD PRE-OP DIAGNOSES: Dysphonia and laryngeal cyst. POST-OP DIAGNOSIS: No cyst identified. OPERATIVE PROCEDURE: Laryngoscopy and microscopy. INDICATIONS: This 59-year-old female presented with hoarseness, noted to have a laryngeal cyst. The patient was taken to the operating room. DESCRIPTION OF PROCEDURE: Larynx was examined on the microscope after suspension with microlaryngoscopy. Careful examination of the vocal cords including with the movement of the tube as best as possible in the posterior area, I did not identify the previously noted cyst. No other mucosal abnormality. Thus, I did not perform any procedure other than microlaryngoscopy and examination. The patient was awakened and sent to recovery room in stable condition. Instrument and sponge counts correct. Blood loss minimal. [id number] #: [id number] MTDD
== END 2019-08-19 16:33 | disposition home or self-care (01) ==
LOC: OR 10:52
PROVIDERS: ATTEND Otolaryngology
DX: R49.0 Dysphonia (principal); Z87.891 Personal history of nicotine dependence; E03.9 Hypothyroidism, unspecified; E78.00 Pure hypercholesterolemia, unspecified; E11.9 Type 2 diabetes mellitus without complications; Z79.84 Long term (current) use of oral hypoglycemic drugs; G89.29 Other chronic pain
CPT/HCPCS: A9270-GY; J1100; J2250; J2704; J3010; J3301

== ENCOUNTER 2023-05-17 20:12 | Inpatient (IN) ==
[2023-05-17 20:52] LABS: ABS Basophils 0.1 10^3/uL (0.0-0.1); ABS Eosinophils 0.1 10^3/uL (0.0-0.5); ABS Lymphocytes 1.8 10^3/uL (1.0-4.8); ABS Monocytes 0.8 10^3/uL (0.0-0.9); ABS Neutrophils 3.9 10^3/uL (1.5-7.6); ABS Nucleated RBC 0.02 10^3/ul; Hematocrit 45.1 % (35-45); Lymphocyte % 27.1 %; Mean Corpuscular Hemoglobin 28.7 pg (27-33); Mean Corpuscular Hgb Conc 33.3 g/dL (31-36); Mean Corpuscular Volume 86.1 fL (80-97); Mean Platelet Volume 8.3 fL (7.5-11.2); Nucleated Red Blood Cells % 0.2 %/100WBC (0.0-0.8); Platelet Count 223 10^3/uL (150-450); Red Blood Count 5.23 10^6/uL (3.63-4.92); Red Cell Distribution Width 12.9 % (12-17); White Blood Count 6.7 10^3/uL (3.8-11.8)
[2023-05-17 21:01] LABS: Activated Partial Thrombo Time 31.7 seconds (26.0-38.0); INR 0.94 (0.83-1.13)
[2023-05-17] MEDS ORDERED: TENECTEPLASE 50 MG VIAL KIT 5 MG/ML (reconstituted) IV ONE (21:03)
[2023-05-17 21:11] LABS: Albumin 4.6 g/dL (3.2-5.2); Albumin/Globulin Ratio 1.5 (1-3); Calcium 9.7 mg/dL (8.6-10.3); Creatinine, Serum 0.83 mg/dL (0.51-0.95); Direct Bilirubin 0.1 mg/dL (0.03-0.18); Indirect Bilirubin 0.6 mg/dL (0.3-1.0); Potassium 3.8 mmol/L (3.5-5.0); Total Bilirubin 0.7 mg/dL (0.2-1.0); Total Protein 7.6 g/dL (6.4-8.9); eGFR CKD-EPI 79.7 (>60)
[2023-05-17] MEDS ORDERED: Dextrose 50% Syringe 50 ml 25 GM/50 ML SYRINGE IV PUSH PRN (22:29)
[2023-05-17] MEDS ORDERED: hydrALAZINE 20 mg/ml 1 ML Vial IV IV SLOW PU PRN (22:30)
[2023-05-17] MEDS ORDERED: EPINEPHrine Anaphylaxis SYR CERTADOSE SYR KIT IM ONE (22:43)
[2023-05-17] MEDS ORDERED: methylPREDNISolone SOD SUCC 125 mg 2 ML VIAL IV ONE (22:43)
[2023-05-17] MEDS ORDERED: Famotidine IV 10 MG/ML 2 ml VIAL (20 mg) IV SLOW PU ONE (22:44)
[2023-05-18 04:50] LABS: ABS Lymphocytes 0.6 10^3/uL (1.0-4.8); ABS Monocytes 0.1 10^3/uL (0.0-0.9); ABS Neutrophils 4.8 10^3/uL (1.5-7.6); Eosinophil % 0.1 %; Hematocrit 43.2 % (35-45); Hemoglobin 14.6 g/dL (11.5-14.3); Lymphocyte % 9.9 %; Mean Corpuscular Hgb Conc 33.9 g/dL (31-36); Mean Corpuscular Volume 85.6 fL (80-97); Mean Platelet Volume 8.4 fL (7.5-11.2); Nucleated Red Blood Cells % 0.1 %/100WBC (0.0-0.8); Platelet Count 213 10^3/uL (150-450); Red Blood Count 5.04 10^6/uL (3.63-4.92); Red Cell Distribution Width 12.9 % (12-17); White Blood Count 5.5 10^3/uL (3.8-11.8)
[2023-05-18 05:06] LABS: Calcium 9.2 mg/dL (8.6-10.3); Creatinine, Serum 0.7 mg/dL (0.51-0.95); eGFR CKD-EPI 97.7 (>60)
[2023-05-18 19:46] LABS: Urine Appearance Cloudy; Urine Bilirubin Negative (Negative); Urine Blood Negative (Negative); Urine Color Yellow; Urine Glucose 3+(>=500 mg/dL) (Negative); Urine Ketones Negative (Negative); Urine Nitrite Negative (Negative); Urine Protein Negative (Negative); Urine Specific Gravity 1.016 (1.002-1.030); Urine Urobilinogen Negative (Negative)
[2023-05-19 05:43] LABS: ABS Basophils 0.1 10^3/uL (0.0-0.1); ABS Lymphocytes 2.2 10^3/uL (1.0-4.8); ABS Monocytes 0.6 10^3/uL (0.0-0.9); ABS Neutrophils 3.9 10^3/uL (1.5-7.6); ABS Nucleated RBC 0.01 10^3/ul; Eosinophil % 0.7 %; Hematocrit 43.2 % (35-45); Hemoglobin 14.5 g/dL (11.5-14.3); Lymphocyte % 32.1 %; Mean Corpuscular Hemoglobin 29.1 pg (27-33); Mean Corpuscular Hgb Conc 33.6 g/dL (31-36); Mean Corpuscular Volume 86.8 fL (80-97); Mean Platelet Volume 8.3 fL (7.5-11.2); Nucleated Red Blood Cells % 0.1 %/100WBC (0.0-0.8); Platelet Count 229 10^3/uL (150-450); Red Blood Count 4.98 10^6/uL (3.63-4.92); Red Cell Distribution Width 13.2 % (12-17); White Blood Count 6.8 10^3/uL (3.8-11.8)
[2023-05-19 06:35] LABS: Anion Gap 6 mmol/L (2-16); Blood Urea Nitrogen 16 mg/dL (6-24); CO2 Carbon Dioxide 23 mmol/L (22-32); Calcium 9.2 mg/dL (8.6-10.3); Chloride 108 mmol/L (101-111); Creatinine, Serum 0.79 mg/dL (0.51-0.95); Glucose 152 mg/dL (70-100); Magnesium 2.1 mg/dL (1.9-2.7); Sodium 137 mmol/L (135-145); eGFR CKD-EPI 84.5 (>60)
[2023-05-19 12:37] VITALS: BP 135/89
[2023-05-21] MEDS ORDERED: Iodixanol 320 (CONTRAST) 100 ML SDV IV ONE (07:50)
== END 2023-05-19 16:40 | disposition home or self-care (01) | DRG 58 ==
LOC: ED 20:12 → EDHOLD 22:24 → ICU 05-18 00:25
PROVIDERS: ADMIT Internal Medicine; ATTEND Internal Medicine

== ENCOUNTER 2024-03-10 07:25 | Observation (INO) ==
[2024-03-10] MEDS: Ondansetron 4 mg VIAL 2 MG/ML 2 ml VIAL IV ONE (07:47)
[2024-03-10] MEDS: NS 0.9% 1000 ml BAG 1,000 ML IV ONE ×2 (07:49→09:23)
[2024-03-10 08:00] LABS: ABS Basophils 0.1 10^3/uL (0.0-0.1); ABS Eosinophils 0.2 10^3/uL (0.0-0.5); ABS Lymphocytes 1.8 10^3/uL (1.0-4.8); ABS Monocytes 0.6 10^3/uL (0.0-0.9); ABS Neutrophils 5.3 10^3/uL (1.5-7.6); Eosinophil % 2.1 %; Hematocrit 45.9 % (35-45); Lymphocyte % 22.7 %; Mean Corpuscular Hemoglobin 29.5 pg (27-33); Mean Corpuscular Hgb Conc 34.8 g/dL (31-36); Mean Corpuscular Volume 84.9 fL (80-97); Mean Platelet Volume 8.4 fL (7.5-11.2); Nucleated Red Blood Cells % 0.1 %/100WBC (0.0-0.8); Platelet Count 245 10^3/uL (150-450); Red Cell Distribution Width 13.2 % (12-17)
[2024-03-10] MEDS: hydrALAZINE 20 mg/ml 1 ML Vial IV IV SLOW PU ONE (08:40)
[2024-03-10 08:48] LABS: Albumin 4.8 g/dL (3.2-5.2); C Reactive Protein 2.41 mg/L (<8.01); Calcium 9.9 mg/dL (8.6-10.3); Creatinine, Serum 0.96 mg/dL (0.51-0.95); Globulin 2.4 g/dL (2-4); Magnesium 1.9 mg/dL (1.9-2.7); Potassium 3.9 mmol/L (3.5-5.0); Total Protein 7.2 g/dL (6.4-8.9); eGFR CKD-EPI 66.5 (>60)
[2024-03-10] MEDS: Iodixanol (CONTRAST) 320 MG/ML 100 ML SDV IV ONE (09:10)
[2024-03-10] MEDS: Prochlorperazine 5 mg/ml 2 ml VIAL (10 mg) IV ONE (09:24)
[2024-03-10 09:41] LABS: Urine Appearance Clear; Urine Bilirubin Negative (Negative); Urine Blood 1+ (Negative); Urine Color Colorless; Urine Glucose Trace (Negative); Urine Ketones Negative (Negative); Urine Nitrite Negative (Negative); Urine Protein Negative (Negative); Urine Specific Gravity 1.009 (1.002-1.030); Urine Urobilinogen Negative (Negative); Urine pH 6.5 (5.0-8.0)
[2024-03-10 09:57] LABS: Urine Bacteria 1+ /HPF (Absent); Urine Red Blood Cell 2+(6-10/hpf) /HPF (0-Trace); Urine Squamous Epithelial Cell Present /HPF (Absent); Urine White Blood Cell Trace(0-5/hpf) /HPF (0-Trace)
[2024-03-10] MEDS ORDERED: Ondansetron 4 mg VIAL 2 MG/ML 2 ml VIAL IV PRN (10:31)
[2024-03-10] MEDS ORDERED: Dextrose 50% Syringe 50 ml 25 GM/50 ML SYRINGE IV PUSH PRN (10:34)
[2024-03-10] MEDS ORDERED: Acetaminophen IV 1 GM/100ML 1,000 MG/100 ML BAG IV PRN (10:35)
[2024-03-10] MEDS ORDERED: Morphine 2 MG/ML SYRINGE IV PRN (10:35)
[2024-03-10] MEDS ORDERED: hydrALAZINE 20 mg/ml 1 ML Vial IV IV SLOW PU PRN (10:38)
[2024-03-10] MEDS: cefTRIAXone 2 gm/50 mL D5W 2 GM/50 ML BAG IV ONE (11:51)
[2024-03-10] MEDS: NS 0.9% 1000 ml BAG 1,000 ML IV SCH (11:53)
[2024-03-10] MEDS ORDERED: Lidocaine 2% PF 5 ML VIAL ONE (15:28)
[2024-03-10] MEDS ORDERED: Propofol 10 MG/ML 20 ML BTL ONE (15:28)
[2024-03-10] MEDS ORDERED: Rocuronium 50 mg VIAL 10 mg/ml 5 ml VIAL (50 mg) ONE (15:28)
[2024-03-10] MEDS ORDERED: Midazolam 2 mg/2 ml VIAL 1 mg/ml 2 ml VIAL (2 mg) ONE (15:29)
[2024-03-10] MEDS ORDERED: fentaNYL 100 mcg/2 ml 50 MCG/ML VIAL ONE (15:29)
[2024-03-10] MEDS ORDERED: Iohexol 180 (CONTRAST) 10 ML SDV IV ONE (16:11)
[2024-03-10] MEDS ORDERED: Ondansetron 4 mg VIAL 2 MG/ML 2 ml VIAL ONE (17:11)
[2024-03-10] MEDS ORDERED: Dexamethasone IV 4 MG/ML VIAL 1 ml VIAL ONE (17:11)
[2024-03-10 19:08] VITALS: BP 152/84
== END 2024-03-10 19:10 | disposition home or self-care (01) ==
LOC: ED 07:25 → EDHOLD 07:25 → AA 10:31
PROVIDERS: ADMIT Internal Medicine; ATTEND Internal Medicine